=== PATIENT | female | born 1945 | race Caucasian/White ===

== ENCOUNTER → 2018-01-14 08:03 | Outpatient (CLI) | payer MEDICARE, BC ==
[~2018-01-14 08:03] MED LIST: BAYER CHEWABLE81 MG PO; CALTRATE 600 M600 M1 PO; CYMBALTA30 MG PO; FERROUS SULFAT325 MG PO; FEXOFENADINE H180 MG PO; KRILL OIL 1,001 EAC1 PO; LEVAQUIN750 MG PO; MAGNESIUM OXID250 MG PO; MIRALAX17 GM PO; MULTIPLE VITAMI1 TA1 PO; NEXIUM40 MG PO; PLAQUENIL200 MG PO; PREDNISONE5 MG PO; PROBIOTIC1 EAC1 PO; VITAMIN D31000 UNIT PO
[2018-04-13 15:47] VITALS: BMI 22.2
== END | disposition home or self-care (01) ==
LOC: D.RAD 08:03
DX: R10.32 Left lower quadrant pain (principal); R11.2 Nausea with vomiting, unspecified; R19.4 Change in bowel habit; K57.30 Diverticulosis of large intestine without perforation or abscess without bleeding

== ENCOUNTER 2018-01-22 17:08 | Inpatient (IN) | payer MEDICARE, BC ==
[~2018-01-22] VITALS: Ht 165.1 cm; Wt 66.8 kg
--- NOTE | ~2018-01-22 | CN ---
PATIENT NAME:KERRI FINN MEDICAL RECORD: [id number] : 41 LOCATION:[facility] ADMIT DATE: 01/22/18 ACCOUNT: [id number] CONSULTING PHYSICIAN: TISHA PRUETT MD REFERRING PHYSICIAN: MARIE ELLIS MD DATE OF CONSULTATION: 01/23/2018 CONSULT REQUESTING PHYSICIAN: Marie Ellis MD. REASON FOR CONSULTATION: Vent management. HISTORY OF PRESENT ILLNESS: Ms. Finn is a 72-year-old female who underwent a colonoscopy yesterday for abdominal pain. The colonoscopy was not completed because it could not be passed beyond the sigmoidal junction. The patient was orally intubated to protect her airway. There was a question of bowel perforation and Dr. Wheat was consulted. The patient does have a history of COPD and asthma, now she is orally intubated and sedated. The history was taken mainly by reviewing the patient's chart as well as talking to the nursing staff. PAST MEDICAL HISTORY: 1. COPD. 2. Asthma-COPD overlap syndrome. 3. Systemic lupus erythematosus. 4. Raynaud's disease. 5. Irritable bowel syndrome. 6. Gastroesophageal reflux disease. 7. History of bowel obstruction, ileus in the past. 8. Depression. PAST SURGICAL HISTORY: 1. Cholecystectomy. 2. Hemorrhoidectomy. 3. Tonsillectomy. ALLERGIES: She is allergic to CODEINE. PERSONAL AND SOCIAL HISTORY: The patient is an ex-smoker. She is a nondrinker. FAMILY HISTORY: Significant for diabetes and coronary artery disease. PHYSICAL EXAMINATION: GENERAL: Now, the patient is orally intubated and sedated. VITAL SIGNS: The blood pressure is 148/62, pulse is 63, respiration is 14, temperature is 98.2, and SpO2 is 98% on assist control mechanical ventilation. HEENT: Conjunctivae pink, sclerae nonicteric. NECK: Supple, no JVD. CHEST: Excursion is minimal on both sides. There are crackles at the bases. No wheezing. HEART: Rhythm regular, normal sound, no murmur. ABDOMEN: Soft, bowel sounds present. No hepatosplenomegaly. RECTAL: Deferred. EXTREMITIES: No cyanosis, no clubbing, no pedal edema. IMAGING: CT scan of the abdomen showed bilateral lower lobe infiltrate. There CONSULT REPORT [id number] KERRI FINN is a small bilateral pleural effusion. There is a severe ileus. OTHER LABORATORY DATA: CBC: WBC is 10.6, hemoglobin 10.1, hematocrit 31.7, the platelet count 207. Chemistry: Sodium 143, potassium 3.3, BUN is 9, creatinine 1.4, glucose 80. ABG: The pH is 7.23, pCO2 is 37.5, the pO2 is 90, bicarb is 16. IMPRESSION: 1. Acute hypoxic respiratory failure post-procedure. 2. Bilateral lower lobe pneumonia. 3. Acute exacerbation of COPD. 4. Metabolic acidosis, most likely secondary to sepsis, rule out ischemic bowel. 5. Abdominal pain. 6. Ileus. 7. Bilateral lower lobe pneumonia, most likely community-acquired pneumonia. 8. Bilateral pleural effusion, which is small possible parapneumonic. RECOMMENDATIONS: 1. We will continue mechanical ventilation, adjust the setting. 2. Sputum for culture and sensitivity. 3. Continue empiric Rocephin and Zithromax. 4. Albuterol ipratropium nebulizer. 5. Brovana and budesonide nebulizer. 6. GI bleed prophylaxis. 7. DVT prophylaxis. 8. Check serum lactic acid level and serum CPK. 9. Follow up labs and chest radiograph. Dr. Ellis thank you for involving me in the care of Ms. Finn. TRANSINT:[id number] Voice Confirmation ID: [id number] DOCUMENT ID: [id number] TISHA PRUETT MD at 1340 CC: MARIE ELLIS [id number] DICTATION DATE: 01/23/18 1107 CLINIC CHARGE NURSE: 01/23/18 1126 DIS IN 02/03/18 [place] [id number] [place] [place] [address]
--- NOTE | ~2018-01-22 | PN ---
PATIENT:KERRI FINN MEDICAL RECORD: [id number] LOCATION:[facility] ADMISSION DATE: 01/22/18 PROGRESS NOTE DATE OF SERVICE: 01/31/2018 ADDENDUM She feels better. I personally reviewed the x-ray report. She is being started on a regular diet. She is having no nausea. She is having bowel movements. This is a progress note addendum. For the typed portion of progress note, please see the chart. No aggravating, no alleviating factors. She does not appear to be in pain. For the past medical and surgical history, current medications, allergies, social history as well as family history, please see the chart. REVIEW OF SYSTEMS: No nausea, no vomiting, no fever, no chills. The review of systems is negative other than as is described above. PHYSICAL EXAMINATION: GENERAL: The patient does not appear acutely ill. She does not appear chronically ill. EARS: External ears appear normal. EYES: Extraocular movements are intact. NECK: Trachea is midline. CHEST: No intercostal retractions. PULMONARY: Nonlabored, no stridor. ABDOMEN: No peritonitis with movement. EXTREMITIES: No peripheral cyanosis. INTEGUMENT: No rash, no ulcerations. PSYCHIATRIC: Normal affect. NEUROLOGIC: Nonfocal, no lethargy. The patient answers questions appropriately. BACK: No thoracic kyphosis. LYMPHATIC: No lymphangitic streaking of the exposed extremities. IMPRESSION: Resolving partial small-bowel obstruction. PLAN: Hopefully home soon. She is being started on a regular diet. TRANSINT:[id number] Voice Confirmation ID: [id number] DOCUMENT ID: [id number] PROGRESS NOTE [id number] FINN,EVA MYARA ALDANA MD at 1042 CC: [id number] DICTATION DATE: 01/31/181910 WANT AD CLERK: 02/01/18 1513 DIS IN 02/03/18 [facility] [address] [place] [address]
[2018-01-22 17:52] LABS: BASOPHILS 0.5 % (0-2); EOSINOPHILS 3.2 % (0-7); HEMATOCRIT 31.6 % (36.0-48.0); HEMOGLOBIN 10.3 g/dL (12-16); IMMATURE GRANULOCYTES 0.8 % (0-5); LYMPHOCYTES 25.7 % (15-50); MCH 31.1 pg (26.0-34.0); MCHC 32.6 g/dL (31.0-37.0); MCV 95.5 fL (80.0-100.0); MEAN PLATELET VOLUME 9.6 fL (7.4-10.4); MONOCYTES 7.7 % (2-11); NEUTROPHILS 62.1 % (40-80); PLATELET COUNT 215 10x3/uL (130-400); RBC 3.31 10x6/uL (4.00-5.40); RDW 13.3 % (11.5-14.5)
[2018-01-22 17:59] LABS: APTT 28.4 SECONDS (22.8-39.4); INR 1.14 (0.85-1.17); PROTIME 14.2 SECONDS (11.6-15.0)
[2018-01-22 18:08] LABS: ALBUMIN 3.1 g/dL (3.4-5.0); ANION GAP 18.8 mmol/L (8-16); BILIRUBIN - TOTAL 0.26 mg/dL (0.2-1.3); CALCIUM 7.3 mg/dL (8.5-10.1); CARBON DIOXIDE 15.4 mmol/L (21.0-32.0); CREATININE - SERUM 1.1 mg/dL (0.6-1.3); POTASSIUM - SERUM 3.2 mmol/L (3.5-5.1); PROTEIN - SERUM 5.5 g/dL (6.4-8.2)
[2018-01-22 18:47] LABS: APPEARANCE SLT CLOUDY (CLEAR); BILIRUBIN NEGATIVE (NEGATIVE); COLOR YELLOW (YELLOW); GLUCOSE NEGATIVE (NEGATIVE); KETONE NEGATIVE (NEGATIVE); NITRITE NEGATIVE (NEGATIVE); PROTEIN TRACE mg/dL (NEGATIVE); SPECIFIC GRAVITY 1.015 (1.005-1.020); UROBILINOGEN NORMAL (NORMAL)
[2018-01-23] VITALS (24 sets, daily range): BP systolic 106–155; BP diastolic 43–79; BMI 23.8; BMI 23.7
[2018-01-23] MEDS ORDERED: BAYER CHEWABLE81 MG PO (01:15)
[2018-01-23] MEDS ORDERED: FERROUS SULFAT325 MG PO (01:16)
[2018-01-23] MEDS ORDERED: CALTRATE 600 M600 M1 PO (01:16)
[2018-01-23] MEDS ORDERED: KRILL OIL 1,001 EAC1 PO (01:17)
[2018-01-23] MEDS ORDERED: PROBIOTIC1 EAC1 PO (01:17)
[2018-01-23] MEDS ORDERED: MAGNESIUM OXID250 MG PO (01:18)
[2018-01-23] MEDS ORDERED: VITAMIN D31000 UNIT PO (01:18)
[2018-01-23] MEDS ORDERED: FEXOFENADINE H180 MG PO (01:19)
[2018-01-23] MEDS ORDERED: NEXIUM40 MG PO (01:19)
[2018-01-23] MEDS ORDERED: PLAQUENIL200 MG PO (01:20)
[2018-01-23] MEDS ORDERED: CYMBALTA30 MG PO (01:20)
[2018-01-23] MEDS ORDERED: MULTIPLE VITAMI1 TA1 PO (01:21)
[2018-01-23 03:59] LABS: BASOPHILS 0.2 % (0-2); EOSINOPHILS 0.8 % (0-7); HEMATOCRIT 31.7 % (36.0-48.0); HEMOGLOBIN 10.1 g/dL (12-16); IMMATURE GRANULOCYTES 0.5 % (0-5); MCH 30.7 pg (26.0-34.0); MCHC 31.9 g/dL (31.0-37.0); MCV 96.4 fL (80.0-100.0); MEAN PLATELET VOLUME 9.7 fL (7.4-10.4); NEUTROPHILS 79.5 % (40-80); PLATELET COUNT 207 10x3/uL (130-400); RBC 3.29 10x6/uL (4.00-5.40); RDW 13.3 % (11.5-14.5); WBC 10.6 10x3/uL (4.8-10.8)
[2018-01-23 04:15] LABS: ALBUMIN 3.1 g/dL (3.4-5.0); BILIRUBIN - TOTAL 0.18 mg/dL (0.2-1.3); CALCIUM 7.5 mg/dL (8.5-10.1); CARBON DIOXIDE 19.3 mmol/L (21.0-32.0); CREATININE - SERUM 1.4 mg/dL (0.6-1.3); POTASSIUM - SERUM 3.3 mmol/L (3.5-5.1); PROTEIN - SERUM 5.6 g/dL (6.4-8.2)
[2018-01-24] VITALS (24 sets, daily range): BP systolic 113–160; BP diastolic 52–67; Ht 165.1 cm; Wt 66.8 kg
[2018-01-24 08:53] LABS: BASOPHILS 0.4 % (0-2); EOSINOPHILS 2.4 % (0-7); HEMATOCRIT 30.8 % (36.0-48.0); HEMOGLOBIN 10.1 g/dL (12-16); IMMATURE GRANULOCYTES 0.7 % (0-5); MCH 30.6 pg (26.0-34.0); MCHC 32.8 g/dL (31.0-37.0); MEAN PLATELET VOLUME 10.3 fL (7.4-10.4); NEUTROPHILS 77.5 % (40-80); RDW 13.6 % (11.5-14.5); WBC 10.7 10x3/uL (4.8-10.8)
[2018-01-24 08:56] LABS: MCV 93.3 fL (80.0-100.0); PLATELET COUNT 148 10x3/uL (130-400)
[2018-01-24 09:05] LABS: ALBUMIN 2.8 g/dL (3.4-5.0); BILIRUBIN - TOTAL 0.21 mg/dL (0.2-1.3); CALCIUM 7.3 mg/dL (8.5-10.1); CREATININE - SERUM 1.1 mg/dL (0.6-1.3); PROTEIN - SERUM 5.4 g/dL (6.4-8.2)
[2018-01-24 09:06] LABS: ANION GAP 24.2 mmol/L (8-16); CARBON DIOXIDE 12.3 mmol/L (21.0-32.0); POTASSIUM - SERUM 4.5 mmol/L (3.5-5.1)
[2018-01-25] VITALS (24 sets, daily range): BP systolic 100–148; BP diastolic 49–65
[2018-01-25 03:45] LABS: BASOPHILS 0.1 % (0-2); EOSINOPHILS 1.9 % (0-7); HEMATOCRIT 28.3 % (36.0-48.0); HEMOGLOBIN 9.2 g/dL (12-16); IMMATURE GRANULOCYTES 0.8 % (0-5); LYMPHOCYTES 8.4 % (15-50); MCH 30.4 pg (26.0-34.0); MCHC 32.5 g/dL (31.0-37.0); MCV 93.4 fL (80.0-100.0); MEAN PLATELET VOLUME 9.2 fL (7.4-10.4); MONOCYTES 10.6 % (2-11); NEUTROPHILS 78.2 % (40-80); RBC 3.03 10x6/uL (4.00-5.40); RDW 13.5 % (11.5-14.5)
[2018-01-25 03:50] LABS: PLATELET COUNT 187 10x3/uL (130-400); WBC 7.7 10x3/uL (4.8-10.8)
[2018-01-25 04:03] LABS: ALBUMIN 2.4 g/dL (3.4-5.0); BILIRUBIN - TOTAL 0.2 mg/dL (0.2-1.3); CREATININE - SERUM 1.2 mg/dL (0.6-1.3)
[2018-01-25 04:04] LABS: ANION GAP 14.8 mmol/L (8-16); CARBON DIOXIDE 20.7 mmol/L (21.0-32.0); POTASSIUM - SERUM 3.5 mmol/L (3.5-5.1)
[2018-01-25 04:05] LABS: CALCIUM 6.9 mg/dL (8.5-10.1)
[2018-01-26] VITALS (24 sets, daily range): BP systolic 94–145; BP diastolic 44–74
[2018-01-26 04:33] LABS: BASOPHILS 0.2 % (0-2); EOSINOPHILS 2.6 % (0-7); HEMOGLOBIN 8.9 g/dL (12-16); IMMATURE GRANULOCYTES 0.6 % (0-5); LYMPHOCYTES 11.3 % (15-50); MCH 30.5 pg (26.0-34.0); MCHC 31.8 g/dL (31.0-37.0); MEAN PLATELET VOLUME 9.2 fL (7.4-10.4); MONOCYTES 11.5 % (2-11); NEUTROPHILS 73.8 % (40-80); PLATELET COUNT 185 10x3/uL (130-400); RBC 2.92 10x6/uL (4.00-5.40); RDW 13.6 % (11.5-14.5); WBC 8.2 10x3/uL (4.8-10.8)
[2018-01-26 04:52] LABS: MCV 95.9 fL (80.0-100.0)
[2018-01-26 05:16] LABS: ALBUMIN 2.1 g/dL (3.4-5.0); ANION GAP 12.3 mmol/L (8-16); BILIRUBIN - TOTAL 0.2 mg/dL (0.2-1.3); CARBON DIOXIDE 25.3 mmol/L (21.0-32.0); CREATININE - SERUM 1.2 mg/dL (0.6-1.3); POTASSIUM - SERUM 4.6 mmol/L (3.5-5.1); PROTEIN - SERUM 4.6 g/dL (6.4-8.2)
[2018-01-26 05:23] LABS: CALCIUM 6.4 mg/dL (8.5-10.1)
[2018-01-27] VITALS (24 sets, daily range): BP systolic 94–160; BP diastolic 45–89
[2018-01-27 06:15] LABS: BASOPHILS 0.2 % (0-2); HEMATOCRIT 27.6 % (36.0-48.0); HEMOGLOBIN 8.7 g/dL (12-16); IMMATURE GRANULOCYTES 0.9 % (0-5); LYMPHOCYTES 8.7 % (15-50); MCH 30.5 pg (26.0-34.0); MCHC 31.5 g/dL (31.0-37.0); MCV 96.8 fL (80.0-100.0); MEAN PLATELET VOLUME 9.3 fL (7.4-10.4); NEUTROPHILS 76.2 % (40-80); PLATELET COUNT 192 10x3/uL (130-400); RBC 2.85 10x6/uL (4.00-5.40); RDW 13.2 % (11.5-14.5); WBC 8.5 10x3/uL (4.8-10.8)
[2018-01-27 06:42] LABS: ALBUMIN 2.1 g/dL (3.4-5.0); ANION GAP 10.4 mmol/L (8-16); BILIRUBIN - TOTAL 0.24 mg/dL (0.2-1.3); CARBON DIOXIDE 25.9 mmol/L (21.0-32.0); CREATININE - SERUM 1.3 mg/dL (0.6-1.3); POTASSIUM - SERUM 4.3 mmol/L (3.5-5.1); PROTEIN - SERUM 4.7 g/dL (6.4-8.2)
[2018-01-27 06:59] LABS: CALCIUM 6.6 mg/dL (8.5-10.1)
[2018-01-28] VITALS (24 sets, daily range): BP systolic 81–158; BP diastolic 40–86
[2018-01-29] VITALS (18 sets, daily range): BP systolic 89–135; BP diastolic 40–86
[2018-01-29 04:48] LABS: BASOPHILS 0.6 % (0-2); EOSINOPHILS 3.8 % (0-7); HEMATOCRIT 30.7 % (36.0-48.0); HEMOGLOBIN 9.6 g/dL (12-16); IMMATURE GRANULOCYTES 0.9 % (0-5); LYMPHOCYTES 7.1 % (15-50); MCH 30.5 pg (26.0-34.0); MCHC 31.3 g/dL (31.0-37.0); MCV 97.5 fL (80.0-100.0); MEAN PLATELET VOLUME 9.1 fL (7.4-10.4); MONOCYTES 14.5 % (2-11); NEUTROPHILS 73.1 % (40-80); PLATELET COUNT 224 10x3/uL (130-400); RBC 3.15 10x6/uL (4.00-5.40); RDW 12.9 % (11.5-14.5)
[2018-01-29 04:55] LABS: WBC 10.7 10x3/uL (4.8-10.8)
[2018-01-29 05:11] LABS: ALBUMIN 2.3 g/dL (3.4-5.0); ANION GAP 12.1 mmol/L (8-16); BILIRUBIN - TOTAL 0.31 mg/dL (0.2-1.3); CALCIUM 7.8 mg/dL (8.5-10.1); MAGNESIUM - SERUM 1.8 mg/dL (1.8-2.4); PHOSPHOROUS 2.3 mg/dL (2.5-4.9); POTASSIUM - SERUM 4.1 mmol/L (3.5-5.1); PROTEIN - SERUM 5.3 g/dL (6.4-8.2)
[2018-01-30] VITALS (11 sets, daily range): BP systolic 91–164; BP diastolic 44–93
[2018-01-30 04:27] LABS: ANION GAP 13.5 mmol/L (8-16); CALCIUM 8.1 mg/dL (8.5-10.1); CARBON DIOXIDE 22.4 mmol/L (21.0-32.0); CREATININE - SERUM 1.2 mg/dL (0.6-1.3); POTASSIUM - SERUM 3.9 mmol/L (3.5-5.1)
[2018-01-30 04:28] LABS: BASOPHILS 0.4 % (0-2); EOSINOPHILS 5.8 % (0-7); HEMATOCRIT 27.3 % (36.0-48.0); HEMOGLOBIN 8.7 g/dL (12-16); IMMATURE GRANULOCYTES 1.3 % (0-5); LYMPHOCYTES 8.7 % (15-50); MCH 30.7 pg (26.0-34.0); MCHC 31.9 g/dL (31.0-37.0); MCV 96.5 fL (80.0-100.0); MONOCYTES 14.3 % (2-11); NEUTROPHILS 69.5 % (40-80); PHOSPHOROUS 3.4 mg/dL (2.5-4.9); PLATELET COUNT 210 10x3/uL (130-400); RBC 2.83 10x6/uL (4.00-5.40); RDW 12.9 % (11.5-14.5); WBC 9.4 10x3/uL (4.8-10.8)
[2018-01-31 00:32] VITALS: BP 116/75
[2018-01-31 04:00] VITALS: BP 141/64
[2018-01-31 08:03] VITALS: BP 102/57
[2018-01-31 12:16] VITALS: BP 128/49
[2018-01-31 16:14] VITALS: BP 120/47
[2018-01-31 20:00] VITALS: BP 110/53
[2018-02-01] VITALS: BP 124/50
[2018-02-01 08:06] VITALS: BP 132/54
[2018-02-01 12:12] VITALS: BP 124/44
[2018-02-01 16:27] VITALS: BP 120/42
[2018-02-01 20:00] VITALS: BP 128/53
[2018-02-02] VITALS: BP 112/52
[2018-02-02 06:00] VITALS: BP 127/45
[2018-02-02 08:45] VITALS: BP 113/51
[2018-02-02 11:30] LABS: EOSINOPHILS 5.9 % (0-7); HEMATOCRIT 27.8 % (36.0-48.0); HEMOGLOBIN 8.8 g/dL (12-16); IMMATURE GRANULOCYTES 1.9 % (0-5); LYMPHOCYTES 9.8 % (15-50); MCH 30.4 pg (26.0-34.0); MCHC 31.7 g/dL (31.0-37.0); MCV 96.2 fL (80.0-100.0); MEAN PLATELET VOLUME 8.5 fL (7.4-10.4); NEUTROPHILS 65.4 % (40-80); PLATELET COUNT 193 10x3/uL (130-400); RBC 2.89 10x6/uL (4.00-5.40); RDW 12.8 % (11.5-14.5); WBC 6.8 10x3/uL (4.8-10.8)
[2018-02-02 11:51] LABS: ALBUMIN 2.4 g/dL (3.4-5.0); BILIRUBIN - TOTAL 0.2 mg/dL (0.2-1.3); CALCIUM 7.6 mg/dL (8.5-10.1); CARBON DIOXIDE 17.5 mmol/L (21.0-32.0); CREATININE - SERUM 1.3 mg/dL (0.6-1.3); POTASSIUM - SERUM 3.5 mmol/L (3.5-5.1); PROTEIN - SERUM 4.9 g/dL (6.4-8.2)
[2018-02-02 13:11] VITALS: BP 132/48
[2018-02-02 16:44] VITALS: BP 127/68
[2018-02-02 20:00] VITALS: BP 133/52
[2018-02-03 04:00] VITALS: BP 131/67
[2018-02-03 06:55] LABS: HEMATOCRIT 24.9 % (36.0-48.0); HEMOGLOBIN 7.9 g/dL (12-16); LYMPHOCYTES 14.9 % (15-50); MCH 30.4 pg (26.0-34.0); MCHC 31.7 g/dL (31.0-37.0); MCV 95.8 fL (80.0-100.0); MEAN PLATELET VOLUME 8.2 fL (7.4-10.4); MONOCYTES 13.4 % (2-11); NEUTROPHILS 60.7 % (40-80); PLATELET COUNT 212 10x3/uL (130-400); RDW 12.9 % (11.5-14.5); WBC 7.7 10x3/uL (4.8-10.8)
[2018-02-03 07:12] LABS: ALBUMIN 2.3 g/dL (3.4-5.0); ANION GAP 13.1 mmol/L (8-16); BILIRUBIN - TOTAL 0.3 mg/dL (0.2-1.3); CALCIUM 7.4 mg/dL (8.5-10.1); CARBON DIOXIDE 21.3 mmol/L (21.0-32.0); CREATININE - SERUM 1.2 mg/dL (0.6-1.3); POTASSIUM - SERUM 3.4 mmol/L (3.5-5.1); PROTEIN - SERUM 5.1 g/dL (6.4-8.2)
[2018-02-03 08:55] VITALS: BP 124/54
[2018-02-03 13:05] VITALS: BP 120/45
[2018-02-03 14:19] LABS: EOSINOPHILS 6.2 % (0-7); HEMATOCRIT 24.9 % (36.0-48.0); HEMOGLOBIN 7.8 g/dL (12-16); IMMATURE GRANULOCYTES 2.2 % (0-5); LYMPHOCYTES 12.6 % (15-50); MCH 30.5 pg (26.0-34.0); MCHC 31.3 g/dL (31.0-37.0); MCV 97.3 fL (80.0-100.0); MEAN PLATELET VOLUME 9.1 fL (7.4-10.4); MONOCYTES 13.1 % (2-11); NEUTROPHILS 64.9 % (40-80); RBC 2.56 10x6/uL (4.00-5.40); RDW 13.1 % (11.5-14.5)
[2018-02-03 14:23] LABS: PLATELET COUNT 102 10x3/uL (130-400)
[2018-02-03 16:00] VITALS: BP 128/49
== END 2018-02-03 17:51 | DRG 870 ==
LOC: D.ER 17:08 → D.ICU 22:13 → D.EDHOLD 22:13 → D.ICU 23:10 → D.MS 01-30 12:41 → D.SDCHOLD 01-30 14:17 → D.MS 01-30 14:17
PROVIDERS: Emergency Medicine; Family Medicine; Family Medicine Adult Medicine; Internal Medicine Pulmonary Disease
PROC: 0T9B70Z Drainage of Bladder with Drainage Device, Via Natural or Artificial Opening (ICD-10-PCS; principal; 2018-01-22)
PROC: 5A1955Z Respiratory Ventilation, Greater than 96 Consecutive Hours (ICD-10-PCS; 2018-01-22)
PROC: 02HV33Z Insertion of Infusion Device into Superior Vena Cava, Percutaneous Approach (ICD-10-PCS; 2018-01-24)
DX: A41.9 Sepsis, unspecified organism (principal); J95.821 Acute postprocedural respiratory failure; J69.0 Pneumonitis due to inhalation of food and vomit; K56.7 Ileus, unspecified; J98.11 Atelectasis; J44.0 Chronic obstructive pulmonary disease with (acute) lower respiratory infection; J44.1 Chronic obstructive pulmonary disease with (acute) exacerbation; K56.609 Unspecified intestinal obstruction, unspecified as to partial versus complete obstruction; S22.31XA Fracture of one rib, right side, initial encounter for closed fracture; M32.9 Systemic lupus erythematosus, unspecified; J44.9 Chronic obstructive pulmonary disease, unspecified; K57.90 Diverticulosis of intestine, part unspecified, without perforation or abscess without bleeding; K21.9 Gastro-esophageal reflux disease without esophagitis; F32.9 Major depressive disorder, single episode, unspecified; I73.00 Raynaud's syndrome without gangrene; K58.9 Irritable bowel syndrome, unspecified; Y83.8 Other surgical procedures as the cause of abnormal reaction of the patient, or of later complication, without mention of misadventure at the time of the procedure; Y92.538 Other ambulatory health services establishments as the place of occurrence of the external cause; E83.51 Hypocalcemia; N73.6 Female pelvic peritoneal adhesions (postinfective); X58.XXXA Exposure to other specified factors, initial encounter

== ENCOUNTER 2018-04-13 04:26 | Inpatient (IN) | payer MEDICARE, BC ==
[~2018-04-13] VITALS: Ht 165.1 cm; Wt 60.8 kg
[~2018-04-13 04:26] MED LIST changes: -LEVAQUIN750 MG PO; -MIRALAX17 GM PO; -PREDNISONE5 MG PO
[2018-04-13] MEDS ORDERED: PREDNISONE5 MG PO (04:55)
[2018-04-13] MEDS ORDERED: MIRALAX17 GM PO (04:55)
[2018-04-13 06:23] VITALS: BP 145/55; BMI 22.3
[2018-04-13 08:00] VITALS: BP 148/55
[2018-04-13 09:32] LABS: ANION GAP 15.3 mmol/L (8-16); BILIRUBIN - TOTAL 0.24 mg/dL (0.2-1.3); CARBON DIOXIDE 21.7 mmol/L (21.0-32.0); CREATININE - SERUM 1.3 mg/dL (0.6-1.3); PROTEIN - SERUM 5.5 g/dL (6.4-8.2)
[2018-04-13 09:35] LABS: BASOPHILS 0.5 % (0-2); EOSINOPHILS 2.4 % (0-7); HEMATOCRIT 29.3 % (36.0-48.0); HEMOGLOBIN 9.2 g/dL (12-16); IMMATURE GRANULOCYTES 0.5 % (0-5); LYMPHOCYTES 21.9 % (15-50); MCH 29.8 pg (26.0-34.0); MCHC 31.4 g/dL (31.0-37.0); MCV 94.8 fL (80.0-100.0); MEAN PLATELET VOLUME 9.5 fL (7.4-10.4); MONOCYTES 8.3 % (2-11); NEUTROPHILS 66.4 % (40-80); RBC 3.09 10x6/uL (4.00-5.40); RDW 13.8 % (11.5-14.5); WBC 6.6 10x3/uL (4.8-10.8)
[2018-04-13 09:38] LABS: PLATELET COUNT 255 10x3/uL (130-400)
[2018-04-13 10:15] LABS: APPEARANCE CLEAR (CLEAR); BILIRUBIN NEGATIVE (NEGATIVE); COLOR YELLOW (YELLOW); GLUCOSE NEGATIVE (NEGATIVE); KETONE NEGATIVE (NEGATIVE); NITRITE NEGATIVE (NEGATIVE); PROTEIN NEGATIVE (NEGATIVE); UROBILINOGEN NORMAL (NORMAL)
[2018-04-13 12:21] VITALS: BMI 22.2
[2018-04-13 15:47] VITALS: Ht 165.1 cm; Wt 60.8 kg
[2018-04-13 17:05] VITALS: BP 132/52
[2018-04-13 22:58] VITALS: BP 130/61
[2018-04-13 23:53] LABS: APPEARANCE CLEAR (CLEAR); BILIRUBIN NEGATIVE (NEGATIVE); COLOR YELLOW (YELLOW); GLUCOSE NEGATIVE (NEGATIVE); KETONE NEGATIVE (NEGATIVE); NITRITE NEGATIVE (NEGATIVE); PROTEIN 1+ mg/dL (NEGATIVE); SPECIFIC GRAVITY 1.015 (1.005-1.020); UROBILINOGEN NORMAL (NORMAL)
[2018-04-13 23:54] LABS: BACTERIA NONE SEEN /hpf (NONE SEEN); EPITHELIAL CELLS 0-5 /hpf (0-5); RED CELLS - URINE NONE SEEN /hpf (0-5); WHITE CELLS - URINE 0-5 /hpf (0-5)
[2018-04-14 05:10] LABS: BASOPHILS 0.5 % (0-2); EOSINOPHILS 3.3 % (0-7); HEMATOCRIT 30.3 % (36.0-48.0); HEMOGLOBIN 9.7 g/dL (12-16); IMMATURE GRANULOCYTES 0.4 % (0-5); LYMPHOCYTES 20.7 % (15-50); MCH 30.8 pg (26.0-34.0); MCV 96.2 fL (80.0-100.0); MEAN PLATELET VOLUME 9.4 fL (7.4-10.4); MONOCYTES 11.5 % (2-11); NEUTROPHILS 63.6 % (40-80); PLATELET COUNT 245 10x3/uL (130-400); RBC 3.15 10x6/uL (4.00-5.40); RDW 13.9 % (11.5-14.5); WBC 5.5 10x3/uL (4.8-10.8)
[2018-04-14 05:40] VITALS: BP 160/96
[2018-04-14 05:43] LABS: ALBUMIN 2.7 g/dL (3.4-5.0); ANION GAP 13.4 mmol/L (8-16); BILIRUBIN - TOTAL 0.2 mg/dL (0.2-1.3); CALCIUM 7.5 mg/dL (8.5-10.1); CARBON DIOXIDE 20.5 mmol/L (21.0-32.0); CREATININE - SERUM 1.1 mg/dL (0.6-1.3); POTASSIUM - SERUM 3.9 mmol/L (3.5-5.1); PROTEIN - SERUM 5.1 g/dL (6.4-8.2)
[2018-04-14 09:20] VITALS: BP 101/56
[2018-04-14 13:26] VITALS: BP 145/57
[2018-04-14 18:26] VITALS: BP 150/68
[2018-04-14 22:17] VITALS: BP 137/53
[2018-04-15 03:56] VITALS: BP 138/64
[2018-04-15 06:15] LABS: BASOPHILS 0.5 % (0-2); EOSINOPHILS 2.6 % (0-7); HEMATOCRIT 30.5 % (36.0-48.0); HEMOGLOBIN 9.9 g/dL (12-16); IMMATURE GRANULOCYTES 0.2 % (0-5); LYMPHOCYTES 18.2 % (15-50); MCH 30.8 pg (26.0-34.0); MCHC 32.5 g/dL (31.0-37.0); MEAN PLATELET VOLUME 9.2 fL (7.4-10.4); MONOCYTES 10.9 % (2-11); NEUTROPHILS 67.6 % (40-80); PLATELET COUNT 227 10x3/uL (130-400); RBC 3.21 10x6/uL (4.00-5.40); RDW 13.9 % (11.5-14.5); WBC 5.8 10x3/uL (4.8-10.8)
[2018-04-15 06:52] LABS: ALBUMIN 2.7 g/dL (3.4-5.0); ANION GAP 14.6 mmol/L (8-16); BILIRUBIN - TOTAL 0.3 mg/dL (0.2-1.3); POTASSIUM - SERUM 3.6 mmol/L (3.5-5.1); PROTEIN - SERUM 5.2 g/dL (6.4-8.2)
[2018-04-15 06:55] LABS: CALCIUM 6.9 mg/dL (8.5-10.1)
[2018-04-15 10:03] VITALS: BP 125/53
[2018-04-15 13:35] VITALS: BP 160/54
[2018-04-15 16:54] VITALS: BP 139/56
[2018-04-15 21:38] VITALS: BP 154/51
[2018-04-16 03:50] VITALS: BP 158/58
[2018-04-16 05:42] LABS: BASOPHILS 0.4 % (0-2); EOSINOPHILS 2.3 % (0-7); HEMOGLOBIN 9.4 g/dL (12-16); IMMATURE GRANULOCYTES 0.2 % (0-5); LYMPHOCYTES 18.7 % (15-50); MCH 30.7 pg (26.0-34.0); MCHC 32.4 g/dL (31.0-37.0); MCV 94.8 fL (80.0-100.0); MEAN PLATELET VOLUME 9.5 fL (7.4-10.4); MONOCYTES 9.6 % (2-11); NEUTROPHILS 68.8 % (40-80); PLATELET COUNT 222 10x3/uL (130-400); RBC 3.06 10x6/uL (4.00-5.40); RDW 13.8 % (11.5-14.5); WBC 5.2 10x3/uL (4.8-10.8)
[2018-04-16 06:08] LABS: ALBUMIN 2.6 g/dL (3.4-5.0); BILIRUBIN - TOTAL 0.26 mg/dL (0.2-1.3); CARBON DIOXIDE 20.1 mmol/L (21.0-32.0); POTASSIUM - SERUM 3.1 mmol/L (3.5-5.1)
[2018-04-16 06:28] LABS: CALCIUM 6.6 mg/dL (8.5-10.1)
[2018-04-16 08:30] VITALS: BP 159/75
[2018-04-16] MEDS ORDERED: LEVAQUIN750 MG PO (11:59)
[2018-04-16 12:50] VITALS: BP 150/78
== END 2018-04-16 15:04 | disposition home or self-care (01) | DRG 390 ==
LOC: D.M2 04:26 → D.MS 04:45 → D.SDCHOLD 04-15 10:51 → D.MS 04-15 10:51
PROVIDERS: Family Medicine; Internal Medicine Nephrology
PROC: 0D9670Z Drainage of Stomach with Drainage Device, Via Natural or Artificial Opening (ICD-10-PCS; principal; 2018-04-13)
DX: K56.609 Unspecified intestinal obstruction, unspecified as to partial versus complete obstruction (principal); J44.9 Chronic obstructive pulmonary disease, unspecified; K56.7 Ileus, unspecified; K58.9 Irritable bowel syndrome, unspecified; K21.9 Gastro-esophageal reflux disease without esophagitis; M32.9 Systemic lupus erythematosus, unspecified